=== PATIENT | female | born 1935 | race Caucasian/White ===

== ENCOUNTER 2023-05-18 10:45 | Outpatient (RCR) | payer MEDICARE, BC, SELFPAY | END 2023-09-15 23:59 | disposition home or self-care (01) | PROVIDERS: PCP Family Medicine; Visit Provider Family Medicine | DX: F03.90 Unspecified dementia, unspecified severity, without behavioral disturbance, psychotic disturbance, mood disturbance, and anxiety (principal); Z51.89 Encounter for other specified aftercare; R41.3 Other amnesia | CPT/HCPCS: 97165; 97535 ==

== ENCOUNTER 2024-04-14 13:42 | Outpatient (RCR) | payer SELFPAY | END 2025-04-09 | disposition home or self-care (01) | LOC: MOW 13:42 | PROVIDERS: PCP Family Medicine; Visit Provider Family Medicine | DX: Z76.0 Encounter for issue of repeat prescription (principal) | CPT/HCPCS: S5170 ==

== ENCOUNTER 2024-12-29 20:25 | Emergency (ER) | payer MEDICARE, BC, SELFPAY ==
--- OUTSIDE RECORDS SUMMARY | 2024-12-29 20:28 | XMS_ITS | Clinical Summary ---
Author Organization [facility] Address [address] [place] [id number] Care Team Providers Care Soc Analyst Name Role Phone Ranjana Chavez MD Unavailable Luz Elena Schroeder DO Primary Care Provider [phone] Allergies Active Allergy Reactions Criticality Noted Date Comments Lisinopril Intolerance-Can't Take 03/18/2016 hyperkalemia Medications MULTIVITAMIN TAB take one daily 0 04/05/20 09 Active omega-3 fatty acids-vitamin E (FISH OIL) 1,000 mg Cap Take 1 capsule by mouth 3 times daily. 0 03/19/20 10 Active aspirin enteric coated 81 mg tablet Take 1 tablet by mouth once daily with a meal. 0 05/17/19 13 Active medical supply, miscellaneous (GRADUATED COMPRESSION STOCKINGS)Indicati ons:Edema, unspecified type For personal use. Length: calf Strength: 16-20 mmHg Circumference in cm: For calf: Ankle 24.5cm, Calf 36.25cm, Ankle to calf length 18.5. 1 Packet 10/27/19 18 Active lancetsIndications :Diabetic nephropathy associated with type 2 diabetes mellitus (HC) OneTouch Ultrasoft Lancets. Test 1time per day. 100 Each 3 04/25/20 18 Active blood sugar diagnostic (ONETOUCH ULTRA TEST) stripIndications:T ype 2 diabetes mellitus with diabetic nephropathy, without long-term current use of insulin (HC) Dispense item covered by pt ins. E11.9 NIDDM type II - Test 1 time/day 200 Each 1 01/22/20 20 Active miscellaneous medical supply (Blood Pressure Cuff) miscIndications:HT N (hypertension) As directed. BP cuff for home monitoring. 1 unit 04/15/20 22 Active blood-glucose meterIndications:T ype 2 diabetes mellitus with diabetic nephropathy, without long-term current use of insulin (HC) Dispense glucose meter, test strips and lancets. Test 1-2 times per day. Patient has coupon for Contour Next One meter. Dx: DM II 1 Each 1 07/04/19 23 Active amLODIPine (NORVASC) 5 mg tabletIndications: Hypertension, unspecified type TAKE 1 TABLET(5 MG) BY MOUTH EVERY DAY 90 Tablet 2 04/16/20 24 Active metFORMIN (GLUCOPHAGE XR) 500 mg Extended-Release tabletIndications: Type 2 diabetes mellitus with diabetic nephropathy, without long-term current use of insulin (HC) TAKE 1 TABLET BY MOUTH DAILY 90 Tablet 3 05/16/19 25 Active atorvastatin (LIPITOR) 40 mg tabletIndications: Hyperlipidemia, unspecified hyperlipidemia type,Diabetic nephropathy associated with type 2 diabetes mellitus (HC) Take 1 Tablet (40 mg) by mouth at bedtime. 90 Tablet 3 05/17/19 25 Active carvediloL (COREG) 3.125 mg tabletIndications: Hypertension, unspecified type Take 1 Tablet (3.125 mg) by mouth two times daily with meals. 180 Tablet 3 05/17/19 25 Active losartan (COZAAR) 25 mg tabletIndications: HTN (hypertension) Take 1 Tablet (25 mg) by mouth once daily. 90 Tablet 05/17/19 25 Active rOPINIRole (REQUIP) 0.5 mg tabletIndications: Restless legs TAKE 1 TABLET BY MOUTH EVERY DAY AT NOON AND AT BEDTIME 180 Tablet 05/17/19 25 Active sertraline (ZOLOFT) 50 mg tabletIndications: Depression, recurrent Take 1 Tablet (50 mg) by mouth once daily in the morning. 90 Tablet 3 05/17/19 25 Active alendronate 70 mg tabletIndications: Osteoporosis, unspecified osteoporosis type, unspecified pathological fracture presence Take 1 Tablet (70 mg) by mouth once a week in the morning. Take on empty stomach with full glass of water. Do not lie down for 1 hr. 12 Tablet 3 09/06/19 25 Active ferrous sulfate 325 mg delayed release tabletIndications: Restless leg syndrome Take 1 Tablet (325 mg) by mouth two times daily with meals. 180 Tablet 3 11/24/19 25 Active cephalexin 250 mg capsuleIndications :Complicated UTI (urinary tract infection) Take 1 Capsule (250 mg) by mouth two times daily for 10 days. 20 Capsule 12/23/19 25 025 Active Active Problems Problem Noted Date Diagnosed Date Dementia without behavioral disturbance, psychotic disturbance, mood disturbance, or anxiety, unspecified dementia severity, unspecified dementia type 02/14/2024 MCI (mild cognitive impairment) 05/31/2023 Overview (05/31/2023): MWV had SLUMS = 11 on Apr 13, 2023 OT evaluation May 2023 with MOCCA 18/30. See scanned Memory loss 04/13/2023 Overview (05/31/2023): SLUMS = 11 on Apr 13, 2023 OT evaluation May 2023 with [facility] 18/30. See scanned Depression, recurrent 09/03/2020 COY (obstructive sleep apnea) 09/05/2018 Overview (09/05/2018): Diagnosed 08/2018. Started on CPAP. Elevated serum creatinine 07/15/2015 Overview (07/15/2015): Intermittently, max creatinine 1.5 Diabetic nephropathy associa yaritza with type 2 diabetes mellitus 01/02/2015 DNR (do not resuscitate) 06/11/2014 Diabetes mellitus type II 04/27/2012 Overview (01/02/2015): HbA1c 6.5 on 04/25/12. Started on metformin. Stopped metformin 09/2013 d/t well controlled DM. A1c 12/21 5.7. Last eye exam: 08/2014 no retinopathy Last monofilament 12/2014: intact Senile osteoporosis 03/25/2011 Overview (06/10/2020): March 2010 DEXA scan with osteoporosis. Started on Fosamax May 2010. DEXA scan March 2011 with osteopenia. DEXA scan September 2013 with osteopenia. Dexa 2018: stable Dexa 2020: worsening Messaged with Endocrinology who recommend 2 year drug holiday and repeat dexa in 2 years, t/c restarted if needed at that point Osteoporosis, unspecified 05/19/2010 HTN (hypertension) 04/05/2009 Overview (05/20/2017): Was previously on hydrochlorothiazide alone and tolerated well. Then switched to combo hydrochlorothiazide/lisinopril and creatinine went up so switched to beta susan. Amlodipine 5mg tolerated well. Got edema at 10mg and so decreased back down and losartan started. Other and Unspecified Hyperlipidemia 04/05/2009 Elevated LFTs Overview (10/12/2022): 5123-6080, normal 2013, 2014 Encounters Date Type Department Care Team Description 12/22/2024 10:15 AM CDT Office Visit [facility] [address] [facility] [address] Haven Baron PA UTI 12/22/2024 Travel 12/05/2024 Orders Only [facility] Scanner 1 scan: (1-Ord) [facility] , 12/05/2024 11/23/2024 Telephone [facility] [address] [place] [address] Luz Elena Schroeder DO Results 11/21/2024 3:35 PM CDT Office Visit [facility] [address] [place] [address] Luz Elena Schroeder DO Diabetes 11/21/2024 Travel from Last 3 Months Immunizations Immunization Administration Dates Next Due Amb Influenza, Inact (High-d ose) (Flu Clinic Only) 03/02/2014 COVID-19 VACCINE SPIKEVAX (M ODERNA 50MCG/0.5ML) 12YO+ PFS 02/17/2023 COVID-19 vaccine (Moderna 10 0mcg/0.5mL) PF, MDV 09/10/2021,07/25/2020,06/24/2020 COVID-19 vaccine (Pfizer-Bio NTech 30mcg/0.3mL) PF, MDV 04/08/2021 Influenza, High-dose Inactivated 02/07/2019,02/07,02/07/2015 Influenza, High-dose Quadriv alent Inactivated 02/17/2023,02/18/2022 Influenza, IIV3 (Age >=3 years) 02/24/2011 Influenza, Inactivated AIIV4 (Age 65+ Years) Preserv Free 01/22/2020 Influenza, Inactivated IIV3 (Age 65+ Years) Preserv Free 02/14/2024,01/24/2018,01/18/2017 Pneumococcal Poly,23-Valent (Pneumovax) 04/05/20 09 Pneumococcal conj 13-Valent (Prevnar 13) 016 Td (Age >=7 Years) 01/19/2006 Tdap 03/28/2012 Family History * Patient is adopted Medical History Relation Name Comments Other Mother Parkinson's; pt is adopted and doesn't know details Relation Name Status Comments Mother Social History Tobacco Use Types Packs/Day Years Used Date Smoking Tobacco: Former Cigarettes Q uit: 05/10/1959 Smokeless Tobacco: Never Tobacco Cessation:Counseling Given: Yes Alcohol Use Standard Drinks/Week Comments Not Currently 0 (1 standard drink = 0.6 oz pur e alcohol) PHQ-2 Answer Date Recorded PHQ-2 TOTAL SCORE 0 05/17/2024 Social Connections Answer Date Recorded Do you often feel lonely or isolated from those around you? 0 11/21/2024 Financial Resource Strain Answer Date R ecorded Difficulty of Paying Living Expenses 3 11/21/2024 Difficulty of Paying Living Expenses Not on file 11/21/2024 Food Insecurity Answer Date Recorded Do you worry your food will run out before you are able to buy more? 1 11/21/2024 Transportation Needs Answer Date Record ed Does lack of transportation keep you from medica l appointments? 1 11/21/2024 Does lack of transportation keep you from work, meetings or getting things that you need? 1 11/21/2024 Housing Stability Answer Date Recorded What is your housing situation today? 1 11/21/2024 Utilities Answer Date Recorded Do you have trouble paying f or utilities (for example, heat, electricity, water, phone)? 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 Gender Identity Not on file Sexual Orientation Not on file Occupation Industry Job Start Date Job End Date retired Not on file Not on file Not on file Obstetrics History Para Term AB IAB SAB Ectopic Multiple Livin g Live Births 4 4 4 Date Outcome GA Total Labor Labor/2nd/3rd Weight Sex Type Anes PTL Alina A1 A5 Name Clin Para Para Para Para Last Filed Vital Signs Vital Sign Reading Time Taken Comments Blood Pressure 180/65 12/22/2024 10:17 AM CDT Pulse 68 12/22/2024 10:17 AM CDT Temperature 36.7 C (98.1 F) 09/27/2018 10:08 AM CDT Respiratory Rate 12 08/23/2018 10:10 AM CDT Oxygen Saturation 99% 12/22/2024 10:17 AM CDT Inhaled Oxygen Concentration - - Weight 63.1 kg (139 lb 1.6 oz) 12/22/2024 10:17 AM CDT Height 169 cm (5' 6.54) 05/17/2024 3:38 PM 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 Body Mass Index 22.09 05/17/2024 3:38 PM 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 Plan of Treatment Upcoming Encounters Date Type Department Care Team (Late st Contact Info) Description 02/22/2025 3:10 PM CDT Office Visit [facility] [address] [place] [address] Luz Elena Schroeder DO [address] [place] [address] Health Maintenance Due Date Last Done Comments Zoster (shingles) series for age 50+ (1 of 2) 07/27/1985 RSV vaccine for adults or (1 - 1-dose 75+ series) 07/27/2010 Tetanus booster 03/28/2022 03/28/2012, 01/19/2006 COVID-19 vaccine series ( season) 2024 02/17/2023, 09/10/2021, 04/08/2021, Additional history exists Influenza Vaccine (#1) 2025 , 01/22/2020, 02/07/2019, Additional history exists BMI (ht and wt on same day) for age 18+ 05/17/2025 05/17/2024, 04/13/2023, 10/19/2019, Additional history exists Depression screening for age 12+ 05/17/2025 05/17/2024, 04/15/2023, 04/13/2023, Additional history exists Medicare Wellness for age 65+ 05/18/2025 05/17/2024, 04/13/2023, 07/25/2018, Additional history exists Pneumococcal series for age 50+ Completed 06/17/2015, 04/05/2009 DEXA/DXA scan for age 65+ Completed 2024, 08/17/2022, 06/03/2020, Additional history exists Hepatitis B series for 19+ Aged Out N o longer eligible based on patient's age to complete this topic Procedures Procedure Name Priority Date/Time Associated Diagnosis Comments URINALYSIS MACROSCOPIC - [facility] ONLY POC DIP ([facility]) Routine 12/22/2024 10:21 AM CDT Lower urinary tract symptoms (LUTS) URINE CULTURE Routine 12/22/2024 10:20 AM CDT Lower urinary tract symptoms (LUTS) URINALYSIS MICROSCOPIC Routine 12/22/2024 10:20 AM CDT Lower urinary tract symptoms (LUTS) SCAN-EYE EXAM 12/05/2024 12:00 AM CDT POTASSIUM Routine 11/21/2024 3:30 PM CDT HTN (hypertension) LDL CHOLESTEROL,DIRECT Routine 11/21/2024 3:30 PM CDT Hyperlipidemia, unspecified hyperlipidemia type CREATININE Routine 11/21/2024 3:30 PM CDT Increase in serum creatinine from prior measurement FERRITIN Routine 11/21/2024 3:30 PM CDT Restless leg syndrome HEMOGLOBIN A1C MONITORING (POCT) Routine 11/21/2024 3:29 PM CDT Type 2 diabetes mellitus with diabetic nephropathy, without long-term current use of insulin (HC) XR DXA BONE DENSITY 2 SITES AXIAL Routine 08/22/2024 3:26 PM CDT Osteoporosis, unspecified osteoporosis type, unspecified pathological fracture presence from Last 3 Months or Most Recently Relevant to Health Maintenance Results * (ABNORMAL) POCT Urinalysis Dipstick Only [[id number]] (12/22/2024 10:21 AM CDT) PH 7.0 5.0 - 8.0 [facility] SPECIFIC GRAVITY 1.010 1.001 - 1.035 [facility] GLUCOSE NEGATIVE NEGATIVE [facility] BILIRUBIN NEGATIVE NEGATIVE [facility] KETONES NEGATIVE NEGATIVE [facility] OCCULT BLOOD TRACE(A) NEGATIVE [facility] PROTEIN 1+(A) NEGATIVE [facility] NITRITE NEGATIVE NEGATIVE [facility] LEUKOCYTE ESTERASE 2+(A) NEGATIVE [facility] Urine URINE SPECIMEN / Unknown 12/22/2024 10:21 AM CDT 12/22/2024 10:21 AM CDT Haven NAGEL URINE Final Result [facility] [address] [place] [address], [facility] [address] [place] [address] * (ABNORMAL) URINALYSIS MICROSCOPIC [15852.1] - routine (12/22/2024 10:20 AM CDT) RBC 0-2 0-2, None Seen /HPF 12/22/2024 3:48 PM CDT [facility] WBC >100(A) 0-2, 3-5, None Seen /HPF 12/22/2024 3:48 PM CDT [facility] BACTERIA None Seen None Seen, Rare, Few Bacteria/ HPF 12/22/2024 3:48 PM CDT [facility] EPITHELIAL CELLS None Seen None Seen, Few Epi/HPF 12/22/2024 3:48 PM CDT [facility] HYALINE CASTS 0-2 0-2, 3-5 /LPF 12/22/2024 3:48 PM CDT [facility] Urine URINE SPECIMEN / Unknown Non-Blood / Unknown 12/22/2024 10:20 AM CDT 12/22/2024 10:20 AM CDT Haven NAGEL URINE Final Result [facility] [address] [address], [place] * URINE CULTURE [14542.2] (12/22/2024 10:20 AM CDT) CULTURE No growth (<1,000 CFU/mL) 12/23/2024 2:55 PM CDT [facility] Urine URINE SPECIMEN / Unknown Non-Blood / Unknown 12/22/2024 10:20 AM CDT 12/22/2024 10:20 AM CDT Haven NAGEL MICROBIOLOGY Final Result [facility] [address] [address], [place] * SCAN-EYE EXAM (12/05/2024 12:00 AM CDT) us Scanner OTHER Final Result * POTASSIUM (11/21/2024 3:30 PM CDT) POTASSIUM 4.7 3.5 - 5.3 mmol/L [facility] Blood BLOOD SPECIMEN / Unknown 11/21/2024 3:30 PM CDT 11/21/2024 3:30 PM CDT [facility] Lauren Arboledamariana CHEMISTRY Final Resu lt Performing Organization Address [facility]/ZIP Co de Phone Number [employer] DIAGNOSTICS [facility] [address] [place] [address], [place] [phone] [facility] [address] [place] [address] * (ABNORMAL) CREATININE (11/21/2024 3:30 PM CDT) CREATININE 1.26(H) 0.60 - 0.95 mg/dL [facility] EGFR 41(L) > OR = 60 mL/min/1.73 m2 [facility] Blood BLOOD SPECIMEN / Unknown 11/21/2024 3:30 PM CDT 11/21/2024 3:30 PM CDT [facility] Lauren [facility] CHEMISTRY Final Resu lt Performing Organization Address [facility] de Phone Number Ravel Law [facility] [address] [place] [address], [facility] [address] [place] [address] * LDL CHOLESTEROL,DIRECT (11/21/2024 3:30 PM CDT) DIRECT LDL 41 <100 mg/dL [facility] Comment: Desirable range <100 mg/dL for primary prevention; <70 mg/dL for patients with CHD or diabetic patients with > or = 2 CHD risk factors. Blood BLOOD SPECIMEN / Unknown 11/21/2024 3:30 PM CDT 11/21/2024 3:30 PM CDT [facility] Lauren [facility] CHEMISTRY Final Resu lt Performing Organization Address City/[facility]/ZIP Co de Phone Number Ravel Law [place] [address] [place] [address], [facility] [address] [place] [address] * FERRITIN (11/21/2024 3:30 PM CDT) Pathologist [facility] FERRITIN 28 16 - 288 ng/mL [facility] Blood BLOOD SPECIMEN / Unknown 11/21/2024 3:30 PM CDT 11/21/2024 3:30 PM CDT [facility] CHEMISTRY Final Resu lt Performing Organization Address City/[facility]/ZIP Co de Phone Number Ravel Law [facility] [address] [place] [address], [place] [phone] [facility] [address] [place] [address] * HEMOGLOBIN A1C MONITORING (POCT) (11/21/2024 3:29 PM CDT) [facility] POC HEMOGLOBIN A1C 5.9 <6.0 % OF TOTAL HGB [facility] Comment: Any point of care results exhibiting inconsistency with the patient's clinical status should be repeated using a different testing method. Blood BLOOD SPECIMEN / Unknown 11/21/2024 3:29 PM CDT 11/21/2024 3:30 PM CDT [facility] Lauren [facility] [employer] Final Resu lt Performing Organization Address [facility]/ZIP Co de Phone Number [facility] [address] [place] [address], [place] [phone] [facility] [address] [place] [address] * (ABNORMAL) XR DXA BONE DENSITY 2 SITES AXIAL (08/22/2024 3:26 PM CDT) Anatomical Region Laterality Modality Spine, HIPS, HIPL, HIPR Other Impressions 08/30/2024 3:23 PM CDT Osteoporosis. RECOMMENDATIONS: The National Osteoporosis Foundation recommends pharmacologic treatment for patients with T-scores of -2.5 or less, patients with prior history of fragility fractures, or patients with 10-year probability of greater than 3% at hips or greater than 20% of suffering major osteoporotic fractures. Recommend continued optimization of calcium and vitamin D intake through dietary means and/or supplementation and regular exercise. Consider pharmacologic therapy for osteoporosis. Follow-up bone density reading in 2 years if therapy initiated to assess therapeutic efficacy. There has been a decline at all sites since 2022, fosamax discontinued greater than 3 years ago. Sumaya Garner PA-C [facility] 08/30/2024 Narrative 08/30/2024 3:23 PM CDT For Patients: Results are automatically released to your [facility] ([employer]) account once available, in compliance with federal regulations. This means that you may see your results before your provider has had a chance to review them. Please allow 2-3 business days for your provider to comment on the results. XR DXA Bone Mineral Density (BMD) EXAM LOCATION: [address] [address] PATIENT NAME: Jazzmine Mendoza DATE OF : 1935 EXAM DATE: 08/22/2024 REQUESTING PROVIDER: Luz Elena Schroeder DO GENDER AT : female HEIGHT: 5' 6.54 (05/17/2024) WEIGHT: 145 lb (05/17/2024) MENOPAUSAL STATUS: Postmenopausal RACE/ETHNICITY: White RISK FACTORS: Diabetes Type 1, History of Fragility Fracture (at a major site), Smoking (prior), and White Race CURRENT MEDICATION FOR BONE LOSS: NONE INDICATION: Follow-up of existing osteopenia COMPARISON DATE(S): 2022 DXA scans are compared to prior studies for a patient only when the two (or more) studies were performed on the same scanner. It is not possible to compare data generated on one scanner to data from another because there are not standards in DXA equipment. This applies even if the two scanners are made by the same custom tailor. PROCEDURE: Dual-energy x-ray absorptiometry performed with routine technique. Reporting is completed in the form of a T-score. The T-score represents the standard deviation from peak bone mass based on young healthy adult. A Z-score is used for diagnosis in premenopausal women, and for men under the age of 50. FINDINGS: RESULT LUMBAR SPINE L1 - L4 BMD: 0.967 g/cm2 T-Score: - 1.8 Z-Score: + 0.2 Change from prior in 2022: Decrease 2.3%. RESULTS FEMUR Left femoral neck BMD: 0.629 g/cm2 T-Score: - 2.9 Z-Score: - 0.4 Change from prior in 2022: Decrease 10.1%. Right femoral neck BMD: 0.520 g/cm2 T-Score: - 3.7 Z-Score: - 1.1 Change from prior in 2022: Decrease 37.9%. Left hip BMD: 0.701 g/cm2 T-Score: - 2.4 Z-Score: + 0.1 Change from prior in 2022: Decrease 7.4%. Right hip BMD: 0.498 g/cm2 T-Score: - 4.0 Z-Score: - 1.5 Change from prior in 2022: Decrease 31.5%. 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
[2024-12-29 20:36] VITALS: BP 172/69; PULSE 96; RESP 16; TEMP 36.7; O2SAT 98; BMI 21.9
--- NOTE | 2024-12-29 20:56 | CRLHL7_ITS ---
For Patients: As a result of the Century Cures Act, medical imaging exams and procedure reports are released immediately into your electronic medical record. You may view this report before your referring provider. If you have questions, please contact your health care provider. Indication: Low back pain Technique: Noncontrast CT through the lumbar spine with multiplanar reformats Comparison: None Findings: Alignment: Mild L5-S1 anterolisthesis. Mild leftward curvature. No acute malalignment appreciated. Bones: Transitional anatomy. Suspect lumbarization of S1 osteopenic appearing bones. No acute fracture appreciated. Lumbar levels: No acute abnormality appreciated. Suspect moderate to severe central stenosis at L5-S1. No high-grade foraminal stenosis appreciated. Severe facet arthropathy at L5-S1. Soft tissues: No acute abnormality appreciated. 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 No acute abnormality appreciated. Please note that all CT scans at this facility use dose modulation, iterative reconstruction, and/or weight-based dosing when appropriate to reduce radiation dose to as low as reasonably achievable. Dictated by Otoniel Matt MD @ 12/29/2024 9:42:22 PM (Electronically Signed)
--- NOTE | 2024-12-29 20:56 | CRLHL7_ITS ---
For Patients: As a result of the Century Cures Act, medical imaging exams and procedure reports are released immediately into your electronic medical record. You may view this report before your referring provider. If you have questions, please contact your health care provider. Indication: Low back pain Technique: Noncontrast CT through the abdomen and pelvis with multiplanar reformats. Comparison: None Findings: Lower chest: Bibasilar atelectasis and/or scarring. Cardiomegaly. Hepatobiliary: No significant parenchymal abnormality is appreciated. Spleen: Calcified granulomata. Pancreas: No acute abnormality appreciated. Adrenal glands: No acute abnormality appreciated. Kidneys: Bilateral renal cysts. No acute parenchymal abnormality appreciated. No hydronephrosis. Bowel: No obstruction. Diverticulosis. No focal perienteric or pericolonic stranding is appreciated. The appendix is visualized and appears unremarkable. Vascular: Severe calcified atherosclerosis. Lymph nodes: No gross lymphadenopathy. Peritoneum: No free air. No free fluid. : No acute abnormality appreciated. Soft tissues: No acute abnormality appreciated. Bones: No acute fracture. No lytic or blastic lesion. Degenerative changes of the spine, overall better assessed on concurrent lumbar spine CT. Impression: Allowing for the absence of IV contrast, there are chronic findings as above with no acute abnormality appreciated. Please note that all CT scans at this facility use dose modulation, iterative reconstruction, and/or weight-based dosing when appropriate to reduce radiation dose to as low as reasonably achievable. Dictated by Otoniel Matt MD @ 12/29/2024 9:40:43 PM (Electronically Signed)
--- NOTE | 2024-12-29 21:15 | ED.BACK ---
HPI - Back Pain/Injury General Date Seen: 12/29/24 Chief Complaint: Back Injury/Pain Stated Complaint: lower back pain Time Seen by Provider: 12/29/24 20:27 Source: patient and family Mode of arrival: ambulatory Limitations: no limitations History of Present Illness HPI Narrative: Patient is an 89-year-old female presenting to the emergency department with her son for low back pain. Pain is been going on for over a week but got acutely worse today. Her son is concerned because he states he has similar symptoms in the past and ended up having a kidney stone. Was seen a week ago and started on antibiotics for possible UTI. Cultures that came back showing she did not have a UTI. Pain has persisted. Has not taking anything yet for pain. Pain is better when she lays down but gets worse when she tries to sit up. Does not remember any injuries. Pain does not radiate down her leg. Goes all across her lower lumbar region around L4 denies saddle anesthesia or urinary retention. Has not had any fevers. No other concerns noted. Related Data Home Medications ?Medication ?Instructions ?Recorded ?Confirmed alendronate 70 mg tablet 70 mg PO 12/29/24 amlodipine 5 mg tablet 5 mg PO DAILY 12/29/24 12/29/24 atorvastatin 40 mg tablet 40 mg PO DAILY 12/29/24 12/29/24 carvedilol 3.125 mg tablet 3.125 mg PO BID 12/29/24 12/29/24 ferrous sulfate 325 mg (65 mg 325 mg PO DAILY 12/29/24 12/29/24 iron) tablet,delayed release losartan 25 mg tablet 25 mg PO DAILY 12/29/24 12/29/24 metformin 500 mg tablet,extended 500 mg PO DAILY 12/29/24 12/29/24 release 24 hr ropinirole 0.5 mg tablet 0.5 mg PO BID 12/29/24 12/29/24 sertraline 50 mg tablet 50 mg PO DAILY 12/29/24 12/29/24 Allergies Allergy/AdvReac Type Severity Reaction Status Date / Time lisinopril AdvReac Verified 12/29/24 20:41 Review of Systems Narrative: Pertinent systems reviewed and were negative unless stated in HPI Exam Narrative: Exam Narrative: Const: Well-nourished, Well-developed, in mild distress Eyes: PERRL, no conjunctival injection, and symmetrical lids HENT: Atraumatic external nose and ears. Moist mucous membranes. Neck: Symmetric, trachea midline, No thyromegaly. CVS: RRR, No murmurs or gallops. Peripheral pulses 2+ and equal in all extremities RESP: Unlabored respiratory effort. Clear to auscultation bilaterally. GI: Nontender/Nondistended, No rebound or guarding. MSK:Extremities w/o deformity, Normal Active ROM, no lumbar or flank tenderness Skin: Warm, Dry. No rashes or lesions. Neuro: Normal Muscle tone, No focal neurological deficits. Psych: Awake, Alert, & Oriented x3. Appropriate mood and affect. Const: Vital Signs, click to edit/add: Vital Signs - 24 hr 12/29/24 20:36 Temperature 98.1 F Pulse Rate [Pulse Oximeter] 96 Respiratory Rate 16 Blood Pressure [Ri ght Upper Arm] 172/69 H Pulse Oximetry 98 Oxygen Delivery Me thod Room Air Course Vital Signs Vital signs: Initial Vital Signs Temperature 98.1 F 12/29/24 20:36 Temperature Source Temporal Artery Scan 12/29/24 20:36 Pulse Rate 96 12/29/24 20:36 Respiratory Rate 16 12/29/24 20:36 Blood Pressure 172/69 H 12/29/24 20:36 Blood Pressure Mean 103 12/29/24 20:36 Blood Pressure Position Sitting 12/29/24 20:36 Pulse Oximetry 98 12/29/24 20:36 Oxygen Delivery Method Room Air 12/29/24 20:36 Vital Signs Temperature 98.1 F 12/29/24 20:36 Pulse Rate 96 12/29/24 20:36 Respiratory Rate 16 12/29/24 20:36 Blood Pressure 172/69 H 12/29/24 20:36 Pulse Oximetry 98 12/29/24 20:36 Oxygen Delivery Method Room Air 12/29/24 20:36 Temperature 98.1 F 12/29/24 20:36 Pulse Rate 96 12/29/24 20:36 Respiratory Rate 16 12/29/24 20:36 Blood Pressure 172/69 H 12/29/24 20:36 Pulse Oximetry 98 12/29/24 20:36 Oxygen Delivery Method Room Air 12/29/24 20:36 MDM - Back Pain/Injury MDM Narrative Medical decision making narrative: Patient is an 89-year-old female presenting for low back pain. This seems almost certainly musculoskeletal pain but the son is concerned about a kidney stone so I will order CT scan abdomen pelvis. Will also order lumbar spine CT to look for possible compression fracture causing her pain. Imaging returns no acute concerning abnormalities. Symptoms are all likely way to central stenosis. She is safe for discharge and they are agreeable to this plan. Imaging Data CT scan abdomen pelvis: Attestation: I have reviewed the pertinent imaging results. Radiologist's impression: Allowing for the absence of IV contrast, there are chronic findings as above with no acute abnormality appreciated. Please note that all CT scans at this facility use dose modulation, iterative reconstruction, and/or weight-based dosing when appropriate to reduce radiation dose to as low as reasonably achievable. Dictated by Otoniel Matt MD @ 12/29/2024 9:40:[address] scan lumbar spine: Attestation: I have reviewed the pertinent imaging results. 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 No acute abnormality appreciated. Please note that all CT scans at this facility use dose modulation, iterative reconstruction, and/or weight-based dosing when appropriate to reduce radiation dose to as low as reasonably achievable. Dictated by Otoniel Matt MD @ 12/29/2024 9:42:22 PM Discharge Plan Discharge Clinical Impression: Acute lumbar back pain Qualifiers: Back pain laterality: unspecified Sciatica presence: without sciatica Qualified Code(s): M54.50 - Low back pain, unspecified Patient Disposition: Home, Self-Care Condition: Stable Instructions: Acute Low Back Pain (ED) Additional Instructions: I believe symptoms are musculoskeletal in nature. Recommend following up with the primary care provider if symptoms persist. Take Tylenol and ibuprofen for pain at home. Return to emergency department for new or worsening symptoms. Prescriptions: No Action atorvastatin 40 mg tablet 40 mg PO DAILY alendronate 70 mg tablet 70 mg PO amlodipine 5 mg tablet 5 mg PO DAILY carvedilol 3.125 mg tablet 3.125 mg PO BID ropinirole 0.5 mg tablet 0.5 mg PO BID losartan 25 mg tablet 25 mg PO DAILY ferrous sulfate 325 mg (65 mg iron) tablet,delayed release (DR/EC) 325 mg PO DAILY metformin 500 mg tablet extended release 24 hr 500 mg PO DAILY sertraline 50 mg tablet 50 mg PO DAILY Follow Up/Referrals: Luz Elena Schroeder DO [Primary Care Provider, Family Practice] Stand Alone Forms: [facility] Info Instructions
[2024-12-29 22:05] VITALS: BP 162/71; PULSE 73; RESP 16; O2SAT 98
== END 2024-12-29 22:07 | disposition home or self-care (01) ==
PROVIDERS: Emergency Provider Student in an Organized Health Care Education/Training Program; PCP Family Medicine
DX: M54.50 Low back pain, unspecified (principal)
CPT/HCPCS: 72131; 74176; 99283; 99284